=== PATIENT | male | born 1975 | race Caucasian/White ===

== ENCOUNTER 2017-05-10 14:38 | Emergency (ER) | payer MEDICARE ==
--- NOTE | ~2017-05-10 | CR20 ---
[facility] A Service of [facility] & [facility] RADIOLOGY TEXT RESULTS PATIENT: THU ALBERT LOCATION: SED : 73 UNIT #: [id number] AGE: [address]: NIKI LEWIS SEX: M ORDER DR: [id number] [place] [id number] E MR#: [id number] Acc #: [id number] NAME: THU ALBERT : 1975 SEX: M STUDY DATE/TIME: 05/10/2017 15:25 UNIT: SED ROOM: STUDY DESCRIPTION: CR Ankle Min 3 Views Lt Attending Physician: Piero Noel Ordering Physician: Piero Noel MEDICAL IMAGING REPORT This report is preliminary unless electronic signature is present. EXAM Left ankle series dated 05/10/2017. COMPARISON Right ankle series dated 06/09/2009. HISTORY Left ankle pain with increased pressure since this morning. FINDINGS 3 views of the left ankle were obtained. No acute displaced fracture or dislocation. There is a large 1 cm planter continue spur. Mild soft tissue swelling along the medial aspect of the ankle cannot be excluded. Patient does have mildly prominent body habitus in this region. Talar dome and ankle mortise are intact. Dictated by... Derik Sanchez M.D. THIS IS AN ELECTRONICALLY VERIFIED REPORT Derik Sanchez M.D. at 05/11/2017 4:59 PM CPR/pcl TD: 05/10/2017 22:57 JOB #: [id number] MEDICAL IMAGING REPORT Page 1 of 1
[~2017-05-10 14:38] MED LIST: ASPIRIN PO; ATENOLOL; ATENOLOL PO; GLUCOPHAGE XR500 MG PO; HCTZ PO; METFORMIN PO; NORVASC; TOPAMAX PO; VICODIN; ZESTORETIC 20/21 TAB PO
[2017-05-10] MEDS ORDERED: OXYIR5 MG (14:41)
== END 2017-05-10 16:22 | disposition home or self-care (01) ==
LOC: SED 14:38
DX: S93.402A Sprain of unspecified ligament of left ankle, initial encounter (principal); E11.9 Type 2 diabetes mellitus without complications; F17.200 Nicotine dependence, unspecified, uncomplicated; I10 Essential (primary) hypertension; Z79.82 Long term (current) use of aspirin; Z79.899 Other long term (current) drug therapy; W06.XXXA Fall from bed, initial encounter
CPT/HCPCS: 29405; 73610; 99283